=== PATIENT | female | born 1985 | race Caucasian/White ===

== ENCOUNTER 2021-02-03 08:52 | Day surgery (SDC) | payer OTHER | END 2021-02-03 17:20 | disposition home or self-care (01) | LOC: CIR.AMB 08:52 | PROVIDERS: ATTEND Orthopaedic Surgery Hand Surgery | DX: M24.831 Other specific joint derangements of right wrist, not elsewhere classified (principal); Z20.822 Contact with and (suspected) exposure to COVID-19 ==